=== PATIENT | female | born 1965 | race Hispanic/Latino ===

== ENCOUNTER 2018-02-19 08:28 | Outpatient (CLI) | payer BC | END 2018-02-19 08:29 | disposition home or self-care (01) | LOC: ECHO 08:28 | PROVIDERS: ATTEND Internal Medicine | DX: I42.2 Other hypertrophic cardiomyopathy (principal); I51.7 Cardiomegaly | CPT/HCPCS: 93017; 93320; 93325; 93350 ==

== ENCOUNTER 2021-06-15 07:03 | Outpatient (CLI) | payer BC | END 2021-06-15 07:04 | disposition home or self-care (01) | LOC: ECHO 07:03 | PROVIDERS: ATTEND Internal Medicine | DX: I34.0 Nonrheumatic mitral (valve) insufficiency (principal) | CPT/HCPCS: 93306 ==